=== PATIENT | female | born 1980 | race Hispanic/Latino ===

== ENCOUNTER 2021-12-23 13:47 | Emergency (ER) | payer SELFPAY ==
[~2021-12-23] VITALS: Ht 157.5 cm; Wt 90.7 kg
[2021-12-23] MEDS ORDERED: ONDANSETRON HCL INJ 2MG/ML 2ML 2 MG/ML VIAL IV STA (13:48)
[2021-12-23] MEDS ORDERED: SODIUM CHLORIDE 0.9% 1000ML 1,000 ML IV ONE ×2 (14:00→15:30)
[2021-12-23] MEDS ORDERED: SODIUM CHLORIDE 0.9% 1000ML 1,000 ML ONE (15:45)
[2021-12-23 16:47] VITALS: BP 105/59
== END 2021-12-23 16:52 | disposition home or self-care (01) ==
LOC: FSED 13:50
DX: R11.2 Nausea with vomiting, unspecified (principal); K52.9 Noninfective gastroenteritis and colitis, unspecified; E86.0 Dehydration; E86.1 Hypovolemia; Z98.84 Bariatric surgery status
CPT/HCPCS: 80053; 81003; 81025; 85025; 99283; J7030